=== PATIENT | male | born 1940 | race Caucasian/White ===

== ENCOUNTER → 2017-10-10 | Outpatient (CLI) | payer OTHER | END | disposition home or self-care (01) | LOC: CFH 11:54 | PROVIDERS: ATTEND Internal Medicine | DX: K44.9 Diaphragmatic hernia without obstruction or gangrene (principal); J98.4 Other disorders of lung; J44.9 Chronic obstructive pulmonary disease, unspecified; I51.7 Cardiomegaly; Z95.1 Presence of aortocoronary bypass graft | CPT/HCPCS: 71250 ==